=== PATIENT | male | born 1955 | race Caucasian/White ===

== ENCOUNTER 2018-08-20 11:38 | Emergency (ER) | payer BC ==
--- NOTE | 2018-08-20 11:39 | ER Report ---
History and Physical Time Seen By MD: 12:02 (SHAUN HI MD) HPI/ROS CHIEF COMPLAINT: Chest pain HISTORY OF PRESENT ILLNESS: Patient is a 63-year-old male with past medical history for hypertension and hypercholesterol. Patient lives in [place] he spent the last week and [facility] doing some outdoor's activities. He stat es that he felt well throughout his entire visit. Today he woke up felt normal. Drinks some coffee took his blood pressure medication and started driving home. States that about an hour into his travels he started developing what he describes as a tingling to the chest that does not go below the sternum and also effects of the upper arms as well as the head. He states that he feels tingling into the head he does not describe actual pain or pressure to either the head or the chest. Patient is a nonsmoker he denies any illicit drug use. He is no prior cardiac history. REVIEW OF SYSTEMS: Constitutional: No fever, no chills. Eyes: No discharge. ENT: No sore throat. Cardiovascular: No chest pain, no palpitations. "tingling" Respiratory: No cough, no shortness of breath. Gastrointestinal: No abdominal pain, no vomiting. Genitourinary: No hematuria. Musculoskeletal: No back pain. Skin: No rashes. Neurological: No headache. (SHAUN HI MD) Allergies: Coded Allergies: No Known Drug Allergies (Unverified , 08/20/18) Home Meds Reported Medications Metoprolol Succinate (METOPROLOL SUCCINATE) 50 Mg Tab.er.24h, 1 TAB PO QDAY, TAB 08/20/18 Atorvastatin Calcium (LIPITOR) 20 Mg Tablet, 1 TAB PO QDAY, TAB 08/20/18 Past Medical/Surgical History Hypertension and hypercholesterol (SHAUN HI MD) Constitutional Vital Sign - Last 24 Hours 08/20/18 11:41 Temp 97.8 Pulse 87 Resp 20 B/P (MAP) 151/97 Pulse Ox 95 (LAURORA,JONNATHAN V DO) Physical Exam General Appearance: The patient is alert, has no immediate need for airway protection and no signs of toxicity. [ ] Eyes: Pupils equal and round no pallor or injection. ENT, Mouth: Mucous membranes are moist. Respiratory: There are no retractions, lungs are clear to auscultation. Cardiovascular: Regular rate and rhythm. [ ] Gastrointestinal: Abdomen is soft and non tender, no masses, bowel sounds normal. Neurological: [ ] Skin: Warm and dry, no rashes. Musculoskeletal: Neck is supple non tender. Extremities are nontender, nonswollen and have full range of motion. [ ] [ ] (SHAUN HI MD) Medical Decision Making Data Points Result Diagram: 08/20/18 1149 08/20/18 1149 Laboratory Hematology Test 08/20/18 11:49 08/20/18 15:07 Red Blood Count 5.53 M/uL (4.00-5.60) Mean Corpuscular Volume 82.6 fL (80.0-96.0) Mean Corpuscular Hemoglobin 28.3 pg (26.0-33.0) Mean Corpuscular Hemoglobin Concent 34.2 g/dL (32.0-36.0) Red Cell Distribution Width 14.4 % (11.5-14.5) Mean Platelet Volume 9.4 fL (7.2-11.1) Neutrophils (%) (Auto) 68.7 % (39.4-72.5) Lymphocytes (%) (Auto) 20.2 % (17.6-49.6) Monocytes (%) (Auto) 8.5 % (4.1-12.4) Eosinophils (%) (Auto) 1.8 % (0.4-6.7) Basophils (%) (Auto) 0.8 % (0.3-1.4) Nucleated RBC Relative Count (auto) 0.0 /100WBC Neutrophils # (Auto) 5.8 K/uL (2.0-7.4) Lymphocytes # (Auto) 1.7 K/uL (1.3-3.6) Monocytes # (Auto) 0.7 K/uL (0.3-1.0) Eosinophils # (Auto) 0.1 K/uL (0.0-0.5) Basophils # (Auto) 0.1 K/uL (0.0-0.1) Nucleated RBC Absolute Count (auto) 0.00 K/uL Prothrombin Time 12.7 seconds (12.0-14.4) Prothromb Time International Ratio 0.96 Activated Partial Thromboplast Time 34 seconds (23-35) Sodium Level 140 mmol/L (137-145) Potassium Level 3.1 mmol/L (3.5-5.0) Chloride Level 103 mmol/L (98-107) Carbon Dioxide Level 25 mmol/L (22-30) Blood Urea Nitrogen 16 mg/dl (9-21) Creatinine 0.80 mg/dl (0.66-1.25) Glomerular Filtration Rate Calc > 60.0 Random Glucose 158 mg/dl (75-110) Calcium Level 9.3 mg/dl (8.4-10.2) Total Bilirubin 0.7 mg/dl (0.2-1.3) Aspartate Amino Transf (AST/SGOT) 58 U/L (0-35) Alanine Aminotransferase (ALT/SGPT) 76 U/L (0-56) Alkaline Phosphatase 149 U/L (0-126) B-Type Natriuretic Peptide 14 pg/ml (0-100) Total Protein 7.4 g/dl (6.3-8.2) Albumin 4.1 g/dl (3.5-5.0) Troponin I < 0.012 ng/ml Chemistry Test 08/20/18 11:49 08/20/18 15:07 White Blood Count 8.5 k/uL (4.5-11.0) Red Blood Count 5.53 M/uL (4.00-5.60) Hemoglobin 15.6 g/dL (14.0-18.0) Hematocrit 45.7 % (42.0-52.0) Mean Corpuscular Volume 82.6 fL (80.0-96.0) Mean Corpuscular Hemoglobin 28.3 pg (26.0-33.0) Mean Corpuscular Hemoglobin Concent 34.2 g/dL (32.0-36.0) Red Cell Distribution Width 14.4 % (11.5-14.5) Platelet Count 296 K/uL (150-450) Mean Platelet Volume 9.4 fL (7.2-11.1) Neutrophils (%) (Auto) 68.7 % (39.4-72.5) Lymphocytes (%) (Auto) 20.2 % (17.6-49.6) Monocytes (%) (Auto) 8.5 % (4.1-12.4) Eosinophils (%) (Auto) 1.8 % (0.4-6.7) Basophils (%) (Auto) 0.8 % (0.3-1.4) Nucleated RBC Relative Count (auto) 0.0 /100WBC Neutrophils # (Auto) 5.8 K/uL (2.0-7.4) Lymphocytes # (Auto) 1.7 K/uL (1.3-3.6) Monocytes # (Auto) 0.7 K/uL (0.3-1.0) Eosinophils # (Auto) 0.1 K/uL (0.0-0.5) Basophils # (Auto) 0.1 K/uL (0.0-0.1) Nucleated RBC Absolute Count (auto) 0.00 K/uL Prothrombin Time 12.7 seconds (12.0-14.4) Prothromb Time International Ratio 0.96 Activated Partial Thromboplast Time 34 seconds (23-35) Glomerular Filtration Rate Calc > 60.0 Calcium Level 9.3 mg/dl (8.4-10.2) Total Bilirubin 0.7 mg/dl (0.2-1.3) Aspartate Amino Transf (AST/SGOT) 58 U/L (0-35) Alanine Aminotransferase (ALT/SGPT) 76 U/L (0-56) Alkaline Phosphatase 149 U/L (0-126) B-Type Natriuretic Peptide 14 pg/ml (0-100) Total Protein 7.4 g/dl (6.3-8.2) Albumin 4.1 g/dl (3.5-5.0) Troponin I < 0.012 ng/ml Coagulation Test 08/20/18 11:49 Prothrombin Time 12.7 seconds Prothromb Time International Ratio 0.96 Activated Partial Thromboplast Time 34 seconds (JONNATHAN JACOBO DO) EKG/Imaging EKG Interpretation EKG shows normal sinus rhythm with a ventricular rate of 69 bpm there is some nonspecific ST segment abnormality. Repeat EKG shows no acute dynamic changes. Monitor Interpretation: Normal Sinus Rhythm Imaging FACILITY: [facility] [place] PATIENT NAME: Jose Gao : 1955 MR: [id number] V: [id number] EXAM DATE: ORDERING PHYSICIAN: SHAUN HI TECHNOLOGIST: Location: [facility] Patient: Jose Gao : 1955 Visit/Account:[id number] Date of Sevice: 08/20/[address] scan without contrast COMPARISONS: None ADDITIONAL PERTINENT HISTORY: Tingling TECHNIQUE: Multiple axial images were obtained from the skull base to the vertex without IV contrast. One of the following dose optimization techniques was utilized in the performance of this exam: Automated exposure control; adjustment of the mA and/or kV according to the patient's size; or use of an iterative reconstruction technique. Specific details can be referenced in the facility's radiology CT exam operational policy. FINDINGS: Midline shift: Negative Ventricles: Negative Brain parenchyma: Negative Extra-axial spaces: Negative Intracranial vasculature: Negative Osseous structures: Negative Paranasal sinuses and mastoid air cells: Small mucous retention cyst involving the right sphenoid sinus. Surrounding soft tissues and orbits: Negative IMPRESSION: 1. No evidence of acute intracranial pathology. 2. Mild underlying paranasal sinus disease. Report Dictated By: Rolly Sanches MD at 08/20/2018 12:32 PM Report E-Signed By: Rolly Sanches MD at 08/20/2018 12:34 PM WSN:[id number] FACILITY: [facility] [place] PATIENT NAME: Jose Gao : 1955 MR: [id number] V: [id number] EXAM DATE: ORDERING PHYSICIAN: SHAUN HI TECHNOLOGIST: Location: [facility] Patient: Jose Gao : 1955 Visit/Account:[id number] Date of Sevice: 08/20/2018 CHEST PA AND LAT COMPARISONS: None. ADDITIONAL PERTINENT HISTORY: Chest pain FINDINGS: Cardiomediastinal silhouette: Negative. Pulmonary vasculature: Negative. Lung emery: Negative. Pleural spaces: Negative. Osseous structures: Minimal spondylitic change involving the thoracic spine. Surrounding soft tissues: Negative. IMPRESSION: No evidence of acute cardiopulmonary disease. Report Dictated By: Rolly Sanches MD at 08/20/2018 12:32 PM Report E-Signed By: Rolly Sanches MD at 08/20/2018 12:32 PM WSN:[email or web address] (SHAUN HI MD) ED Course/Re-evaluation ED Course 08/20/2018 12:06:15 pm patient with vague symptoms of tingling to the chest and head. Also complaining of some mild blurry vision. Plan at this time will be cardiac workup with delta troponin at 3 hours and serial EKGs. We will give aspirin at this time. (SHAUN HI MD) ED Course 08/20/2018 3:50:02 pm signed out pending second troponin. Second troponin is negative. Pt feels comfortable going home. Decision to Disposition Date: Aug 20, 2018 Decision to Disposition Time: 15:49 (JONNATHAN JACOBO DO) Depart Departure Latest Vital Signs Vital Signs Date Time Temp Pulse Resp B/P (MAP) Pulse Ox O2 Delivery O2 Flow Rate FiO2 08/20/18 11:41 97.8 87 20 151/97 95 (JONNATHAN JACOBO DO) Impression: Primary Impression: Chest pain Additional Impressions: Paresthesia Hypokalemia Condition: Improved Disposition: HOME OR SELF-CARE Patient Instructions: GENERAL ER DISCHARGE INSTRUCTIONS, Hypokalemia (GEN) Additional Instructions: Your blood work and cat scan today did not show anything acute. Your potassium was low but was replaced to normal. Follow up with your doctor when she returns home. Problem Qualifiers Primary Impression: Chest pain Chest pain type: unspecified Qualified Codes: R07.9 - Chest pain, unspecified SHAUN HI MD Aug 20, 2018 11:39 JONNATHAN JACOBO DO Aug 20, 2018 15:50
[2018-08-20] MEDS ORDERED: ATOR20TA22 PO (11:42)
[2018-08-20] MEDS ORDERED: METO50TA19 PO (11:42)
[2018-08-20] MEDS ORDERED: ASPIRIN 81 MG CHEW PO ONE (12:05)
--- NOTE | 2018-08-20 12:06 | EKG ---
FACILITY: [facility] [place]IENT NAME: KATIA DOSHI : [id number] MR: [id number] V: [id number] EXAM DATE: ORDERING PHYSICIAN: SHAUN HI TECHNOLOGIST: Test Reason : chest tingling Blood Pressure : / mmHG Vent. Rate : 069 BPM Atrial Rate : 069 BPM P-R Int : 128 ms QRS Dur : 096 ms QT Int : 424 ms P-R-T Axes : 052 000 013 degrees QTc Int : 454 ms Sinus rhythm with sinus arrhythmia with fusion complexes T inv/flattening consistent with inferior ischemia vs normal variant Confirmed by NARENDRA LEIGH ([id number]) on 08/20/2018 5:30:01 PM Referred By: Confirmed By:NARENDRA LEIGH
[2018-08-20 12:09] LABS: PLATELET COUNT, AUTOMATED 296 K/uL (150-450)
[2018-08-20 12:14] LABS: INR 0.96
[2018-08-20] MEDS ORDERED: KCL (*) 20 MEQ/100 ML PREMIX 100 ML IV ONE (12:20)
[2018-08-20] MEDS ORDERED: NS(*) 0.9% 1000 ML BAG 1,000 ML IV ONE (12:23)
--- NOTE | 2018-08-20 12:36 | RADIOLOGY IMAGING REPORT ---
FACILITY: [facility] PATIENT NAME: Jose Gao : 1955 MR: [id number] V: [id number] EXAM DATE: ORDERING PHYSICIAN: SHAUN HI TECHNOLOGIST: Location: [facility] [place] Patient: Jose Gao : 1955 Visit/Account:[id number] Date of Sevice: 08/20/2018 CHEST PA AND LAT COMPARISONS: None. ADDITIONAL PERTINENT HISTORY: Chest pain FINDINGS: Cardiomediastinal silhouette: Negative. Pulmonary vasculature: Negative. Lung emery: Negative. Pleural spaces: Negative. Osseous structures: Minimal spondylitic change involving the thoracic spine. Surrounding soft tissues: Negative. IMPRESSION: No evidence of acute cardiopulmonary disease. Report Dictated By: Rolly Sanches MD at 08/20/2018 12:32 PM Report E-Signed By: Rolly Sanches MD at 08/20/2018 12:32 PM WSN:[id number]
--- NOTE | 2018-08-20 12:38 | RADIOLOGY IMAGING REPORT ---
FACILITY: [facility] [place] PATIENT NAME: Jose Gao : 1955 MR: [id number] V: [id number] EXAM DATE: ORDERING PHYSICIAN: SHAUN HI TECHNOLOGIST: Location: [facility] [place] Patient: Jose Gao : 1955 Visit/Account:[id number] Date of Sevice: 08/20/[address] scan without contrast COMPARISONS: None ADDITIONAL PERTINENT HISTORY: Tingling TECHNIQUE: Multiple axial images were obtained from the skull base to the vertex without IV contrast . One of the following dose optimization techniques was utilized in the performance of this exam: Aut omated exposure control; adjustment of the mA and/or kV according to the patient's size; or use of an iterative reconstruction technique. Specific details can be referenced in the facility's radiology CT exam operational policy. FINDINGS: Midline shift: Negative Ventricles: Negative Brain parenchyma: Negative Extra-axial spaces: Negative Intracranial vasculature: Negative Osseous structures: Negative Paranasal sinuses and mastoid air cells: Small mucous retention cyst involving the right sphenoid si nus. Surrounding soft tissues and orbits: Negative IMPRESSION: 1. No evidence of acute intracranial pathology. 2. Mild underlying paranasal sinus disease. Report Dictated By: Rolly Sanches MD at 08/20/2018 12:32 PM Report E-Signed By: Rolly Sanches MD at 08/20/2018 12:34 PM WSN:[id number]
--- NOTE | 2018-08-20 12:40 | EKG ---
FACILITY: [facility] PATIENT NAME: KATIA DOSHI : [id number] MR: [id number] V: [id number] EXAM DATE: ORDERING PHYSICIAN: SHAUN HI TECHNOLOGIST: Test Reason : REPEAT Blood Pressure : / mmHG Vent. Rate : 071 BPM Atrial Rate : 071 BPM P-R Int : 140 ms QRS Dur : 102 ms QT Int : 428 ms P-R-T Axes : 023 -04 -07 degrees QTc Int : 465 ms Sinus rhythm with occasional premature ventricular complexes T inv/flattening consistent with inferior ischemia vs normal variant Relatively unchanged from previous, except now with a PVC Confirmed by NARENDRA LEIGH ([id number]) on 08/20/2018 5:31:04 PM Referred By: Confirmed By:NARENDRA LEIGH
[2018-08-20 15:00] VITALS: BP 143/92
== END 2018-08-20 16:03 | disposition home or self-care (01) ==
LOC: ER 11:50
DX: R07.9 Chest pain, unspecified (principal); R20.2 Paresthesia of skin; E87.6 Hypokalemia
CPT/HCPCS: 36415; 70450; 71046; 83880; 84484; 85025; 85610; 85730; 93005; 96361; 96365; 96366; 99285; J3480; J7030; 82040; 82247; 82310; 82374; 82435; 82565; 82947; 84075; 84132; 84155; 84295; 84450; 84460; 84520